=== PATIENT | male | born 1995 | race Caucasian/White ===

== ENCOUNTER 2022-02-25 13:52 | Emergency (ER) | payer OTHER, SELFPAY ==
--- NOTE | ~2022-02-25 | XR_ITS ---
EXAMINATION: XR chest 2V DATE: 02/26/2022 06:16 INDICATION: Drug-induced psychosis. TECHNIQUE: Frontal and lateral views of the chest were obtained. COMPARISON: None. FINDINGS: There is no pneumonia, pleural effusion, or pneumothorax. The heart size is normal. IMPRESSION: 1. No acute cardiopulmonary disease. Reviewed, dictated and finalized at location A.
[2022-02-25 13:57] VITALS: BP 141/87; PULSE 101; RESP 20; TEMP 36.7; O2SAT 99
[2022-02-25 14:15] LABS: Basophils Absolute Auto 0.1 K/mm3 (0.0-0.1); Basophils Percent Auto 0.5 % (0.2-1.2); Eosinophils Percent Auto 0.1 % (0-4.4); Hematocrit 31.4 % (42.0-52.0); Hemoglobin 10.1 g/dL (14.0-18.0); Immature Granulocyte Absolute 0.06 K/mm3 (0.00-0.031); Immature Granulocyte Percent A 0.4 % (0-0.5); Lymphocytes Absolute Auto 1.81 K/mm3 (0.9-3.2); Lymphocytes Percent Auto 10.8 % (18.3-44.2); Mean Corpuscular HGB Conc 32.2 g/dl (32-36); Mean Corpuscular Hemoglobin 25.6 pg (26-34); Mean Corpuscular Volume 79.5 fl (80-100); Mean Platelet Volume 9.2 fl (7.4-10.4); Monocytes Percent Auto 6.2 % (2.6-8.5); Neutrophils Absolute Auto 13.7 K/mm3 (1.3-6.7); Platelet Count Result 481 k/mm3 (150-375); Red Blood Count 3.95 M/mm3 (4.6-6.20); Red Cell Distribution Width 16.1 % (11.5-14.5); White Blood Count 16.7 K/mm3 (4.5-10.0)
[2022-02-25 14:25] LABS: Appearance Urine Slightly Cloudy (Clear); Bilirubin Urine 1+ (Negative); Color Urine Yellow (Yellow); Glucose Urine UA Negative (Negative); Ketones Urine Negative (Negative); Leukocyte Esterase Ur Negative LEU/UL (Negative); Nitrate Urine Negative (Negative); Protein Urine 1+ mg/dL (Negative); Specific Grav Ur >= 1.030 (1.001-1.035); Urobilinogen Urine 0.2 mg/dL (<2.0); pH Urine 5.5 (5.0-9.0)
[2022-02-25 14:29] LABS: Add Urine Microscopic? YES; Blood Urine Trace-Intact (Negative)
[2022-02-25 14:43] LABS: Bacteria Urine Trace /hpf; Barbiturate Screen Urine Negative (Negative); Benzodiazepines Screen Urine Negative (Negative); Mucus Urine Rare /lpf; Squamous Epithelial Cell Urine Rare /hpf (Few)
[2022-02-25 14:47] LABS: Cannabinoid Screen Urine Negative (Negative); Cocaine Screen Urine Negative (Negative); Methadone Screen Urine Negative (Negative); Opiate Screen Urine Negative (Negative); Phencyclidine Screen Urine Negative (Negative)
[2022-02-25 15:00] LABS: Ethanol < 10 mg/dL (<10)
[2022-02-25 15:28] LABS: Amphetamine Screen Urine Positive (Negative)
[2022-02-25 15:47] LABS: SARS-CoV-2 RNA PCR Negative
--- NOTE | 2022-02-25 15:54 | ED.GENADULT ---
HPI - General Adult General Chief complaint: Psychiatric Symptoms Stated complaint: drug-induced psychosis History of Present Illness HPI narrative: This is a 26-year-old male presenting to ED for psychosis. Patient was recently released from custodial. He says he has been doing multiple drugs including fentanyl since then. He denies crack cocaine or methamphetamines. He was called by EMS because he was acting bizarrely. Patient says that he is suicidal. He says he wants to cut his wrist. he does not have access to a firearm. He denies homicidal ideation. Denies visual or auditory hallucinations. Patient says that he has psychiatric history including bipolar disorder, autism among others. He says this was retaken psychiatric admission and does not take them. Patient denies any physical complaints at this time. Related Data Allergies Allergy/AdvReac Type Severity Reaction Status Date / Time No Known Allergies Allergy Verified 08/08/19 12:34 Review of Systems Review of Systems: CONSTITUTIONAL: Denies night sweats. EYES: No eye pain ENT: Denies rhinorrhea CARDIOVASCULAR: Denies palpitations RESPIRATORY: Denies hemoptysis GASTROINTESTINAL: Denies hematemesis GENITOURINARY: Denies hematuria. SKIN: Denies rash MUSCULOSKELETAL: Denies myalgia. NEUROLOGIC: Denies weakness. PSYCHIATRIC: Denies delusions PMFSH Past Medical History Medical History Autism Bipolar affect, depressed Developmental delay, moderate Social History Social History Substance use type: other Course Vital Signs Vital signs: Vital Signs Temperature 98.0 F 02/25/22 13:57 Pulse Rate 101 H 02/25/22 13:57 Respiratory Rate 20 02/25/22 13:57 Blood Pressure 141/87 H 02/25/22 13:57 Pulse Oximetry 99 02/25/22 13:57 Oxygen Delivery Room Air 02/25/22 13:57 Temperature 98.0 F 02/25/22 13:57 Pulse Rate 101 H 02/25/22 13:57 Respiratory Rate 20 02/25/22 13:57 Blood Pressure 141/87 H 02/25/22 13:57 Pulse Oximetry 99 02/25/22 13:57 Oxygen Delivery Room Air 02/25/22 13:57 Medical Decision Making Vital Signs Vital Signs: Vital Signs Temperature 98.0 F 02/25/22 13:57 Pulse Rate 101 H 02/25/22 13:57 Respiratory Rate 20 02/25/22 13:57 Blood Pressure 141/87 H 02/25/22 13:57 Pulse Oximetry 99 02/25/22 13:57 Oxygen Delivery Room Air 02/25/22 13:57 Temperature 98.0 F 02/25/22 13:57 Pulse Rate 101 H 02/25/22 13:57 Respiratory Rate 20 02/25/22 13:57 Blood Pressure 141/87 H 02/25/22 13:57 Pulse Oximetry 99 02/25/22 13:57 Oxygen Delivery Room Air 02/25/22 13:57 Lab Data Result diagrams: 02/25/22 14:08 02/25/22 14:08 Labs: Lab Results 02/25/22 02/25/22 02/25/22 Range/Units 14:08 14:08 14:08 WBC 16.7 H (4.5-10.0) K/mm3 RBC 3.95 L (4.6-6.20) M/mm3 Hgb 10.1 L (14.0-18.0) g/dL Hct 31.4 L (42.0-52.0) % MCV 79.5 L (80-100) fl MCH 25.6 L (26-34) pg MCHC 32.2 (32-36) g/dl RDW 16.1 H (11.5-14.5) % Plt Count 481 H (150-375) k/mm3 MPV 9.2 (7.4-10.4) fl Immature Gran % (Auto) 0.4 (0-0.5) % Neut % (Auto) 82.0 H (45.5-73.1) % Lymph % (Auto) 10.8 L (18.3-44.2) % [place] % (Auto) 6.2 (2.6-8.5) % Eos % (Auto) 0.1 (0-4.4) % Baso % (Auto) 0.5 (0.2-1.2) % Lymph # (Auto) 1.81 (0.9-3.2) K/mm3 [place] # (Auto) 1.0 H (0.1-0.6) K/mm3 Eos # (Auto) 0.0 (0-0.3) K/mm3 Baso # (Auto) 0.1 (0.0-0.1) K/mm3 Abs Immat Gran (auto) 0.06 H (0.00-0.031) K/mm3 Absolute Neuts (auto) 13.7 H (1.3-6.7) K/mm3 Absolute Nucleated RBC 0.0 (0.0-0.012) K/mm3 Nucleated RBC % 0.0 (0.0-0.2) % Sodium Pending Potassium Pending Chloride Pending Carbon Dioxide Pending Anion Gap Pending BUN Pending Creatinine Pending Estim Cre
[2022-02-25 17:06] LABS: Alanine Aminotransferase 46 U/L (6-50); Albumin Level 4.5 g/dL (3.5-5.1); Alkaline Phosphatase 120 U/L (38-126); Anion Gap 11 mmol/L (8-16); Aspartate Amino Transferase 100 U/L (17-59); Bilirubin,Total 0.4 mg/dL (0.2-1.3); Blood Urea Nitrogen 28 mg/dL (9-20); Calcium 8.7 mg/dL (8.4-10.2); Carbon Dioxide 25 mmol/L (22-30); Chloride 91 mmol/L (98-107); Estimated CRCL calculation 84 ml/min; Estimated Glomerular Filt Rate > 60; Glucose 115 mg/dL (65-110); Potassium 3.6 mmol/L (3.4-5.0); Sodium 127 mmol/L (137-145)
--- NOTE | 2022-02-25 21:00 | PC.NURSE ---
fax [facility]: [phone] packet faxed
--- NOTE | 2022-02-25 21:29 | ED.GENADULT ---
HPI - General Adult General Chief complaint: Psychiatric Symptoms <Kelechi Dodge MD - Last Filed: 02/25/22 21:45> Stated complaint: drug-induced psychosis <Kelechi Dodge MD - Last Filed: 02/25/22 21:45> Time Seen by Provider: 02/26/22 07:06 <Kelechi Dodge MD - Last Filed: 02/25/22 21:45> History of Present Illness HPI narrative: ?This is a 26-year-old male presenting to ED for psychosis.? Patient was recently released from snf.? He says he has been doing multiple drugs including fentanyl since then.? He denies crack cocaine or methamphetamines.? He was called by EMS because he was acting bizarrely.? Patient says that he is suicidal.? He says he wants to cut his wrist. ? he does not have access to a firearm.? He denies homicidal ideation.? Denies visual or auditory hallucinations.? Patient says that he has psychiatric history including bipolar disorder, autism among others.? He says this was retaken psychiatric admission and does not take them.? Patient denies any physical complaints at this time. <Kelechi Dodge MD - Last Filed: 02/25/22 21:45> Related Data Allergies/adverse reactions: Allergies Allergy/AdvReac Type Severity Reaction Status Date / Time No Known Allergies Allergy Verified 08/08/19 12:34 <Kelechi Dodge MD - Last Filed: 02/25/22 21:45> Review of Systems Review of Systems: CONSTITUTIONAL: Denies night sweats. EYES: No eye pain ENT: Denies rhinorrhea CARDIOVASCULAR: Denies palpitations RESPIRATORY: Denies hemoptysis GASTROINTESTINAL: Denies hematemesis GENITOURINARY: Denies hematuria. SKIN: Denies rash MUSCULOSKELETAL: Denies myalgia. NEUROLOGIC: Denies weakness. PSYCHIATRIC: Denies delusions <Kelechi Dodge MD - Last Filed: 02/25/22 21:45> PMFSH Past Medical History Medical History: Medical History Autism Bipolar affect, depressed Developmental delay, moderate <Kelechi Dodge MD - Last Filed: 02/25/22 21:45> Social History Social History: Social History (Updated 02/25/22 @ 21:33 by Kelechi Dodge MD) Social History: Patient denies alcohol or tobacco use. Admits to ethanol use. Denies cocaine or methamphe Substance use type: other <Kelechi Dodge MD - Last Filed: 02/25/22 21:45> Exam Narrative: APPEARANCE: No apparent distress. Patient is disheveled. He is mumbling to himself. He is malodorous. Head atraumatic. EYES: PERRLA/EOMI, NOSE: Normal no drainage NECK: Supple, Trachea midline RESPIRATORY: CTAB, No increased work of breathing. CARDIOVASCULAR: S1S2 appreciated ABDOMINAL: Soft, nontender, nondistended, MUSCULOSKELETAl: No obvious deformities NEURO: Alert. Moving 4/4 extremities SKIN:: Warm, dry. Normal color PSYCHIATRIC: Normal affect <Kelechi Dodge MD - Last Filed: 02/25/22 21:45> Course Course Emergency Course: 02/26/22 0700 care turned myself at shift change seen evaluate myself agree with initial H&P Patient accepted to [facility] by Dr. Whitt <Tariq Hansen DO - Last Filed: 02/26/22 09:33> Vital Signs Vital signs: Vital Signs Temperature 98.0 F 02/25/22 13:57 Pulse Rate 101 H 02/25/22 13:57 Respiratory Rate 20 02/25/22 13:57 Blood Pressure 141/87 H 02/25/22 13:57 Pulse Oximetry 99 02/25/22 13:57 Oxygen Delivery Room Air 02/25/22 13:57 Temperature 97.3 F L 02/26/22 06:58 Pulse Rate 81 02/26/22 09:23 Respiratory Rate 18 02/26/22 09:23 Blood Pressure 123/69 02/26/22 09:23 Pulse Oximetry 100 02/26/22 09:23 Oxygen Delivery Room Air 02/25/22 13:57 <Kelechi Dodge MD - Last Filed: 02/25/22 21:45> Vital Signs Temperature 98.0 F 02/25/22 13:57 Pulse Rate 101 H 02/25/22 13:57 Respiratory Rate 20 02/25/22 13:57 Blood Pressure 141/87 H 02/25/22 13:57 Pulse Oximetry 99 02/25/22 13:57 Oxygen Delivery Room Air 02/25/22 13:57 Temperature 97.3 F L 08
--- NOTE | 2022-02-25 23:56 | PC.NURSE ---
Patient resting comfortably in bed. no requests at this time.
--- NOTE | 2022-02-26 03:29 | PC.NURSE ---
This RN talked to [facility] nurse and they stated none of this patients paperwork had the correct name on it so it will have to be refaxed over by shira who filled out the paperwork. THis RN called [facility] again and told them about this situation they stated that Shira would fill out the paperwork again and then fax it over to [facility]
--- NOTE | 2022-02-26 05:14 | PC.NURSE ---
Dax from [facility] states they will try to contact saskia again to get her to come and fill out the paperwork again.
[2022-02-26 06:58] VITALS: BP 127/73; PULSE 62; TEMP 36.3; O2SAT 99
--- NOTE | 2022-02-26 09:18 | PC.NURSE ---
report called to Gale Rodriguez RN at [facility]. accepting physician-Dr Whitt. patient going to room 220-A.
[2022-02-26 09:23] VITALS: BP 123/69; PULSE 81; RESP 18; O2SAT 100
--- NOTE | 2022-02-26 09:31 | PC.NURSE ---
[facility] accepted transfer to [facility] rm 220-A ETA 12:15 Trip# [id number]
== END 2022-02-26 12:10 ==
PROVIDERS: Emergency Medicine; Emergency Provider Emergency Medicine
DX: F31.9 Bipolar disorder, unspecified (principal); Z20.822 Contact with and (suspected) exposure to COVID-19; F84.0 Autistic disorder
CPT/HCPCS: 36415; 71046; 80053; 80307; 81001; 84443; 85025; 99285; C9803; U0003; U0005